=== PATIENT | male | born 1960 | race Caucasian/White ===

== ENCOUNTER 2017-01-17 20:21 | Emergency (ER) | payer OTHER, BC ==
[~2017-01-17] VITALS: Ht 177.8 cm; Wt 80.8 kg
[~2017-01-17 20:21] MED LIST: Claritin,Alavart PO; Glucosamine Sulfate PO; LIALDA1.2 GM PO; NEXIUM40 MG PO; ZANTAC150 M1 PO
[2017-01-17] MEDS ORDERED: NAPROSYN500 MG PO (21:52)
[2017-01-17] MEDS ORDERED: PERCOCET 5/31 TABLET PO (21:52)
[2017-01-17 22:21] VITALS: BP 123/79
== END 2017-01-17 22:21 | disposition home or self-care (01) ==
LOC: EXP 20:21 → EME 20:21 → EXP 22:21
PROC: 2W39X1Z Immobilization of Left Upper Extremity using Splint (ICD-10-PCS; principal; 2017-01-17)
DX: S56.912A Strain of unspecified muscles, fascia and tendons at forearm level, left arm, initial encounter (principal); W10.9XXA Fall (on) (from) unspecified stairs and steps, initial encounter
CPT/HCPCS: 73080; 99281; 99283